=== PATIENT | male | born 1975 | race Two or more races ===

== ENCOUNTER 2017-01-18 08:20 | Emergency (ER) | payer OTHER ==
[2017-01-18 08:32] VITALS: BP 124/79; PULSE 78; TEMP 97.8; BMI 25.8
--- NOTE | 2017-01-18 08:59 | PDOC ---
History of Present Illness - General Chief Complaint: Sore Throat Stated Complaint: HEADACHE Time Seen by Provider: 01/18/17 08:52 History Source: Patient Exam Limitations: No Limitations - History of Present Illness Initial Comments: 01/18/17 08:58 41 yr male with 2 days sinus headache and pressure to the face. Pt states nasal drainage and pressure . Pt also with sore throat. no fever. Pt took motrin [employer]. Timing/Duration: other (1-2 days) Severity: moderate Associated Symptoms: reports: headaches Past History - Past Medical History Allergies/Adverse Reactions: Allergies Allergy/AdvReac Type Severity Reaction Status Date / Time No Known Allergies Allergy Verified 01/18/17 08:33 Home Medications: Ambulatory Orders Amoxicillin/Potassium Clav [Augmentin 875-125 Tablet] 1 each PO BID #14 tablet 01/18/17 Fluticasone Prop 0.05% Nasal [Flonase -] 1 - 2 spray NS DAILY #1 spray.pump Other medical history: PT DENIES MEDICAL HX - Family Disease History Comment:: 01/18/17 08:59 none - Psycho/Social/Smoking Cessation Hx Suicidal Ideation: No Smoking History: Current every day smoker Number of Cigarettes Smoked Daily: 20 Information on smoking cessation initiated: No Hx Alcohol Use: No Drug/Substance Use Hx: No *Physical Exam - Vital Signs Last Vital Signs Temp Pulse Resp BP Pulse Ox 97.8 F 78 16 124/79 97 01/18/17 08:29 01/18/17 08:29 01/18/17 08:29 01/18/17 08:29 01/18/17 08:29 - Physical Exam General Appearance: Yes: Nourished, Appropriately Dressed HEENT: positive: EOMI, FERMIN, TMs Normal, Pharyngeal Erythema, Tonsillar Erythema , Nasal Congestion, Sinus Tenderness Neck: positive: Supple. negative: Tender, Lymphadenopathy (R), Lymphadenopathy (L) Respiratory/Chest: positive: Lungs Clear, Normal Breath Sounds Cardiovascular: positive: Regular Rhythm, Regular Rate Gastrointestinal/Abdominal: positive: Normal Bowel Sounds, Soft Musculoskeletal: positive: Normal Inspection Extremity: positive: Normal Capillary Refill, Normal Inspection, Normal Range of Motion Integumentary: positive: Normal Color, Dry Neurologic: positive: Fully Oriented, Alert, Normal Mood/Affect, Normal Response , Motor Strength 5/5 Medical Decision Making - Medical Decision Making 01/18/17 09:42 cc: sore throat, siunus tenderness, congestion will check for strep *DC/Admit/Observation/Transfer Diagnosis at time of Disposition: Sinus infection Qualifiers: Sinusitis location: maxillary Chronicity: acute Recurrence: not specified Qualified Code(s): J01.00 - Acute maxillary sinusitis, unspecified - Discharge Dispostion Disposition: HOME Condition at time of disposition: Good - Prescriptions Prescriptions: Amoxicillin/Potassium Clav [Augmentin 875-125 Tablet] 1 each PO BID #14 tablet Fluticasone Prop 0.05% Nasal [Flonase -] 1 - 2 spray NS DAILY #1 spray.pump - Referrals Referrals: Sam Prasad MD [Staff Physician] - - Patient Instructions Additional Instructions: use saline spray and Flonase as directed take Augmentin as directed for 7 days take an over the counter Advil cold and sinus to help with pain and pressure follow with the ENT doctors if your symptoms worsen or do not improve
== END 2017-01-18 09:47 | disposition home or self-care (01) ==
LOC: JERFT 08:20
DX: J01.00 Acute maxillary sinusitis, unspecified (principal)
CPT/HCPCS: 87070; 87430; 99281-25